=== PATIENT | female | born 1935 ===

== ENCOUNTER 2019-08-03 14:46 | Outpatient (RCR) | payer MEDICARE, OTHER, SELFPAY | END 2019-08-04 00:01 | LOC: ONCRAD 14:46 | PROVIDERS: PCP Internal Medicine Medical Oncology; Visit Provider Internal Medicine Medical Oncology | DX: C50.412 Malignant neoplasm of upper-outer quadrant of left female breast (principal); C78.7 Secondary malignant neoplasm of liver and intrahepatic bile duct; C79.2 Secondary malignant neoplasm of skin; R60.0 Localized edema; J90 Pleural effusion, not elsewhere classified; Z17.0 Estrogen receptor positive status [ER+]; J18.9 Pneumonia, unspecified organism; I10 Essential (primary) hypertension; E11.9 Type 2 diabetes mellitus without complications; K21.9 Gastro-esophageal reflux disease without esophagitis; E03.9 Hypothyroidism, unspecified; F41.9 Anxiety disorder, unspecified; M81.0 Age-related osteoporosis without current pathological fracture; Z79.899 Other long term (current) drug therapy; Z90.12 Acquired absence of left breast and nipple; Z92.3 Personal history of irradiation; G20 Parkinson's disease; Z92.21 Personal history of antineoplastic chemotherapy; Z87.442 Personal history of urinary calculi | CPT/HCPCS: 71046; 80053; 85025; 93306; 99214 ==

== ENCOUNTER 2019-08-21 12:40 | Outpatient (RCR) | payer MEDICARE, OTHER, SELFPAY | END 2019-09-04 00:01 | LOC: ONCRAD 12:40 | PROVIDERS: PCP Internal Medicine Medical Oncology; Visit Provider Internal Medicine Medical Oncology | DX: E87.6 Hypokalemia (principal); C79.2 Secondary malignant neoplasm of skin; C78.7 Secondary malignant neoplasm of liver and intrahepatic bile duct; Z85.3 Personal history of malignant neoplasm of breast; I10 Essential (primary) hypertension; E11.9 Type 2 diabetes mellitus without complications; K21.9 Gastro-esophageal reflux disease without esophagitis; E03.9 Hypothyroidism, unspecified; F41.9 Anxiety disorder, unspecified; M81.0 Age-related osteoporosis without current pathological fracture; G20 Parkinson's disease; Z17.0 Estrogen receptor positive status [ER+]; Z92.3 Personal history of irradiation; Z79.899 Other long term (current) drug therapy; Z87.442 Personal history of urinary calculi; Z90.12 Acquired absence of left breast and nipple | CPT/HCPCS: 36591; 80048; 80053; 82607 ×2; 84443 ×2; 85025; 96365; 96366; 99214; J1642 ×2; J3480; J7040 ==

== ENCOUNTER 2019-08-26 08:34 | Inpatient (IN) | payer MEDICARE, OTHER, SELFPAY | END 2019-08-30 15:43 | disposition hospice, inpatient (51) | DRG 75 | PROVIDERS: Admitting Provider Internal Medicine; Emergency Provider Emergency Medicine; Family Provider Internal Medicine Medical Oncology; Visit Provider Family Medicine | DX: A87.9 Viral meningitis, unspecified (principal); E87.1 Hypo-osmolality and hyponatremia; J90 Pleural effusion, not elsewhere classified; K21.9 Gastro-esophageal reflux disease without esophagitis; Z92.3 Personal history of irradiation; Z90.12 Acquired absence of left breast and nipple; Z79.899 Other long term (current) drug therapy; G20 Parkinson's disease; I11.0 Hypertensive heart disease with heart failure; E11.9 Type 2 diabetes mellitus without complications; E03.9 Hypothyroidism, unspecified; I48.91 Unspecified atrial fibrillation; Z51.5 Encounter for palliative care; F41.9 Anxiety disorder, unspecified; M81.0 Age-related osteoporosis without current pathological fracture; Z87.442 Personal history of urinary calculi; Z66 Do not resuscitate; R21 Rash and other nonspecific skin eruption; C50.919 Malignant neoplasm of unspecified site of unspecified female breast ==